=== PATIENT | female | born 1945 | race Caucasian/White ===

== ENCOUNTER 2016-11-19 15:55 | Inpatient (IN) | payer MEDICARE, BC ==
[~2016-11-19 15:55] MED LIST: ADVIL200 M2 PO; ANEXSIA 5/325 M1 TAB PO; ATIVAN1 M2 PO; CENTRUM SILVER1 EAC6 PO; CIPRO XR500 MG PO; CLARITIN-D 241 EAC1 PO; DELTASONE20 MG PO; DULCOLAX STOOL100 MG PO; IBUPROFEN400 MG PO; MAXZIDE 37.5 M1 EAC1 PO; MAXZIDE1 TA2 PO; MEGESTROL ACETA40 M1 PO; MORPHINE SULFAT30 M6 PO; MS CONTIN30 M1 PO; MULTI VITAMIN1 EAC1 PO; MULTIVITAMIN1 TAB PO; MULTIVITAMINS1 EAC6 PO; PERCOCET 5-3251 EACH PO; PROTONIX40 MG PO; ROBAXIN500 M1 PO; SANTYL30 GM TP; SENNA-S TABLET1 EAC1 PO; TAMOXIFEN CITRA20 M1 PO; TYLENOL325 M1 PO; VANCOMYCIN HCL1 G1 IV; VITAMIN D31000 UNI2 PO; VITAMIN D31000 UNI3 PO; ZOSYN IV; [UNRECOGNIZED DRUG - OTHER] IV
[2016-11-19] MEDS ORDERED: VITAMIN D31000 UNI3 PO (16:34)
[2016-11-20 07:52] LABS: BASO % 0.3 % (0-2); EOS % 0.3 % (0-7); HGB-HEMOGLOBIN 8.7 gm/dl (12.0-15.5); IMMATURE GRANULOCYTES ABSOLUTE 0.05 tho/cmm (0-0.03); IMMATURE GRANULOCYTES PERCENT 1.7 % (0-0.3); LYMPH % 15.9 % (20-45); LYMPH ABSOLUTE COUNT 0.5 tho/cmm (0.8-4.5); MCH (MEAN CORPUSCULAR HGB) 28.6 pg (28.0-32.0); MCHC MEAN CORPUSCULAR HGB CONC 33.5 % (32.0-36.0); MCV (MEAN CELL VOLUME) 85.5 fl (82.0-96.0); MEAN PLATELET VOLUME 10.1 cmc (9.4-12.4); MONO % 9.8 % (0-12); MONOCYTE ABSOLUTE COUNT 0.3 tho/cmm (0.0-1.2); NEUTROPHIL ABSOLUTE COUNT 2.1 tho/cmm (1.6-8.0); NEUTROPHIL-AUTOMATED 2.1 tho/cmm (1.6-8.0); PLATELET COUNT 71 tho/cmm (150-450); RED BLOOD COUNT 3.04 mil/cmm (4.00-5.20); RED CELL DISTRIBUTION WIDTH 14.7 % (12.4-16.4)
[2016-11-20 07:59] LABS: ANION GAP 15 mmol/L (0-20); BLOOD UREA NITROGEN 21 mg/dl (6-24); CALCIUM 8.7 mg/dl (8.5-10.5); CARBON DIOXIDE-VENOUS 22 mmol/L (22-32); CHLORIDE 108 mmol/l (96-110); CREATININE 0.72 mg/dl (0.50-1.10); GLUCOSE 85 mg/dL (70-110); POTASSIUM 3.7 mmol/L (3.7-5.1); SODIUM 141 mmol/L (135-145); eGFR VALUE FOR BLACK >90 mL/Min
[2016-11-21 04:39] LABS: HCT-HEMATOCRIT 26.1 % (34.0-49.0); HGB-HEMOGLOBIN 8.8 gm/dl (12.0-15.5); IMMATURE GRANULOCYTES ABSOLUTE 0.05 tho/cmm (0-0.03); IMMATURE GRANULOCYTES PERCENT 1.7 % (0-0.3); LYMPH % 18.5 % (20-45); LYMPH ABSOLUTE COUNT 0.6 tho/cmm (0.8-4.5); MCH (MEAN CORPUSCULAR HGB) 28.6 pg (28.0-32.0); MCHC MEAN CORPUSCULAR HGB CONC 33.7 % (32.0-36.0); MCV (MEAN CELL VOLUME) 84.7 fl (82.0-96.0); MONO % 8.3 % (0-12); MONOCYTE ABSOLUTE COUNT 0.3 tho/cmm (0.0-1.2); NEUTROPHIL ABSOLUTE COUNT 2.1 tho/cmm (1.6-8.0); NEUTROPHIL-AUTOMATED 2.1 tho/cmm (1.6-8.0); NEUTROPHILS % 69.5 % (40-80); PLATELET COUNT 76 tho/cmm (150-450); RED BLOOD COUNT 3.08 mil/cmm (4.00-5.20); RED CELL DISTRIBUTION WIDTH 14.6 % (12.4-16.4)
[2016-11-21 04:55] LABS: ALB/GLOB RATIO 0.7 (0.8-2.0); ALBUMIN 2.5 g/dl (3.5-5.0); ALKALINE PHOSPHATASE 151 U/L (33-138); ALT/SGPT 100 U/L (12-78); ANION GAP 14 mmol/L (0-20); AST/SGOT 123 U/L (10-40); BILIRUBIN,TOTAL 0.7 mg/dl (0-1.5); BLOOD UREA NITROGEN 17 mg/dl (6-24); CALCIUM 8.8 mg/dl (8.5-10.5); CARBON DIOXIDE-VENOUS 23 mmol/L (22-32); CHLORIDE 109 mmol/l (96-110); CREATININE 0.55 mg/dl (0.50-1.10); GLUCOSE 79 mg/dL (70-110); POTASSIUM 3.5 mmol/L (3.7-5.1); SODIUM 142 mmol/L (135-145); eGFR VALUE FOR BLACK >90 mL/Min
[2016-11-21 04:57] LABS: INR 1.3 INR (0.9-1.1); PROTHROMBIN TIME 15.7 SECONDS (9.0-13.6)
[2016-11-22 06:51] LABS: BASO % 0.5 % (0-2); EOS % 0.9 % (0-7); HCT-HEMATOCRIT 27.6 % (34.0-49.0); HGB-HEMOGLOBIN 9.3 gm/dl (12.0-15.5); LYMPH % 13.6 % (20-45); LYMPH ABSOLUTE COUNT 0.6 tho/cmm (0.8-4.5); MCH (MEAN CORPUSCULAR HGB) 28.4 pg (28.0-32.0); MCHC MEAN CORPUSCULAR HGB CONC 33.7 % (32.0-36.0); MCV (MEAN CELL VOLUME) 84.1 fl (82.0-96.0); MONO % 7.6 % (0-12); MONOCYTE ABSOLUTE COUNT 0.3 tho/cmm (0.0-1.2); NEUTROPHIL ABSOLUTE COUNT 3.4 tho/cmm (1.6-8.0); NEUTROPHIL-AUTOMATED 3.4 tho/cmm (1.6-8.0); NEUTROPHILS % 77.4 % (40-80); PLATELET COUNT 88 tho/cmm (150-450); RED BLOOD COUNT 3.28 mil/cmm (4.00-5.20); RED CELL DISTRIBUTION WIDTH 14.3 % (12.4-16.4); WHITE BLOOD COUNT 4.4 tho/cmm (4.0-10.0)
[2016-11-22 07:03] LABS: ALB/GLOB RATIO 0.8 (0.8-2.0); ALBUMIN 2.8 g/dl (3.5-5.0); ALKALINE PHOSPHATASE 161 U/L (33-138); ALT/SGPT 96 U/L (12-78); ANION GAP 14 mmol/L (0-20); AST/SGOT 116 U/L (10-40); BLOOD UREA NITROGEN 14 mg/dl (6-24); CALCIUM 9.1 mg/dl (8.5-10.5); CARBON DIOXIDE-VENOUS 22 mmol/L (22-32); CHLORIDE 107 mmol/l (96-110); CREATININE 0.58 mg/dl (0.50-1.10); POTASSIUM 3.1 mmol/L (3.7-5.1); SODIUM 140 mmol/L (135-145); eGFR VALUE FOR BLACK >90 mL/Min
[2016-11-22 07:07] LABS: GLUCOSE 127 mg/dL (70-110)
[2016-11-22 17:41] LABS: ABG CO2 ARTERIAL 20 mmol/L (21-27); ARTERIAL BLD GAS O2 SATURATION 98 % (95-98); ARTERIAL BLOOD GAS PCO2 29 mmHg (32-45); ARTERIAL PO2 109 mmHg (70-100); BICARBONATE 19 mmol/L (21-28); BLOOD GAS BASE EXCESS -4 mM/L (-/+3); PH 7.43 Units (7.35-7.45)
[2016-11-23 05:24] LABS: BASO % 0.2 % (0-2); HGB-HEMOGLOBIN 8.1 gm/dl (12.0-15.5); IMMATURE GRANULOCYTES ABSOLUTE 0.07 tho/cmm (0-0.03); IMMATURE GRANULOCYTES PERCENT 1.4 % (0-0.3); LYMPH % 12.4 % (20-45); LYMPH ABSOLUTE COUNT 0.6 tho/cmm (0.8-4.5); MCH (MEAN CORPUSCULAR HGB) 28.3 pg (28.0-32.0); MCV (MEAN CELL VOLUME) 83.6 fl (82.0-96.0); MEAN PLATELET VOLUME 11.2 cmc (9.4-12.4); MONOCYTE ABSOLUTE COUNT 0.4 tho/cmm (0.0-1.2); NEUTROPHIL ABSOLUTE COUNT 3.9 tho/cmm (1.6-8.0); NEUTROPHIL-AUTOMATED 3.9 tho/cmm (1.6-8.0); PLATELET COUNT 64 tho/cmm (150-450); RED BLOOD COUNT 2.86 mil/cmm (4.00-5.20); RED CELL DISTRIBUTION WIDTH 15.2 % (12.4-16.4)
[2016-11-23 05:30] LABS: HCT-HEMATOCRIT 23.9 % (34.0-49.0); MCHC MEAN CORPUSCULAR HGB CONC 33.9 % (32.0-36.0)
[2016-11-23 05:59] LABS: ANION GAP 18 mmol/L (0-20); BLOOD UREA NITROGEN 19 mg/dl (6-24); CALCIUM 7.7 mg/dl (8.5-10.5); CARBON DIOXIDE-VENOUS 18 mmol/L (22-32); CHLORIDE 111 mmol/l (96-110); GLUCOSE 124 mg/dL (70-110); SODIUM 143 mmol/L (135-145); eGFR VALUE FOR BLACK >90 mL/Min
[2016-11-23 06:05] LABS: ABG CO2 ARTERIAL 21 mmol/L (21-27); ARTERIAL BLD GAS O2 SATURATION 98 % (95-98); ARTERIAL BLOOD GAS PCO2 30 mmHg (32-45); BICARBONATE 20 mmol/L (21-28); BLOOD GAS BASE EXCESS -4 mM/L (-/+3); PH 7.43 Units (7.35-7.45)
[2016-11-23 06:05] LABS: POTASSIUM 4.3 mmol/L (3.7-5.1)
[2016-11-23 06:11] LABS: ARTERIAL PO2 95 mmHg (70-100)
[2016-11-23 12:42] LABS: INR 1.7 INR (0.9-1.1)
[2016-11-23 12:45] LABS: PARTIAL THROMBOPLASTIN TIME 36 SECONDS (22-38)
[2016-11-23 13:03] LABS: PROTHROMBIN TIME 20.6 SECONDS (9.0-13.6)
[2016-11-23 14:39] LABS: BASO % 0.2 % (0-2); HGB-HEMOGLOBIN 7.4 gm/dl (12.0-15.5); IMMATURE GRANULOCYTES ABSOLUTE 0.06 tho/cmm (0-0.03); IMMATURE GRANULOCYTES PERCENT 1.3 % (0-0.3); LYMPH % 8.9 % (20-45); LYMPH ABSOLUTE COUNT 0.4 tho/cmm (0.8-4.5); MCH (MEAN CORPUSCULAR HGB) 27.9 pg (28.0-32.0); MCV (MEAN CELL VOLUME) 84.5 fl (82.0-96.0); MEAN PLATELET VOLUME 11.1 cmc (9.4-12.4); MONO % 5.2 % (0-12); MONOCYTE ABSOLUTE COUNT 0.2 tho/cmm (0.0-1.2); NEUTROPHIL ABSOLUTE COUNT 3.9 tho/cmm (1.6-8.0); NEUTROPHIL-AUTOMATED 3.9 tho/cmm (1.6-8.0); NEUTROPHILS % 84.4 % (40-80); PLATELET COUNT 61 tho/cmm (150-450); RED BLOOD COUNT 2.65 mil/cmm (4.00-5.20); RED CELL DISTRIBUTION WIDTH 15.7 % (12.4-16.4); WHITE BLOOD COUNT 4.6 tho/cmm (4.0-10.0)
[2016-11-23 14:46] LABS: HCT-HEMATOCRIT 22.4 % (34.0-49.0)
--- NOTE | 2016-11-23 18:30 | NUR ---
0630: RESTLESS, MOVING ALL EXTREMITIES VOLUNTARILY- RT. ARM AND LEG> LEFT. SLOW TO FOLLOW COMMANDS WITH LEFT SIDE. OPENS LEFT EYE AND FOCUSES BREIFLY. RESP. 30'S USING ACCESSORY MUSCLES ON BIPAP. SMITH WITH SM. AMT. YELLOW URINE. 0730: CONT. RESTLESS WITH RESP. IN HIGH 30'S AND HR 120'S. DR. Hadley ALONSO AND DR. ÁLVAREZ HERE, GIVEN CONDITION UPDATE. ORDERS RECIEVED. TAKEN OFF BIPAP PER DR. ALONSO ORDER. PLACED ON 3L/MIN NC. 0745: MORE RESTLESS, AUDIBLE INSPIRATORY WHEEZE, INCREASED HR AND RESP. RATE. 0800: INSPIRATORY STRIDOR NOTED. DR. ALONSO COMES BACK TO ASSESS PT. PT. PLACED BACK ON BIPAP. RESP. RATE 42 WITH HR 140'S PRIOR TO PLACING BACK ON BIPAP. ORDERS RECIEVED FROM DR. ALONSO. 0830: PICC TEAM HERE TO PLACE PICC. [address] PICC, PT. REMAINS TOO RESTLESS. 1030 CONT. RESTLESS MOVING ARMS AND LEGS. RESP. LESS LABORED AND RETRACTION/STRIDOR NO LONGER AUDIBLE. PRECEDEX INITIATED AND FENTANYL BASAL RATE STARTED ORDERED. IV FLUIDS INCREASED TO 150CC/HR. [address] NURSE HERE TO PLACE PICC. ATIVAN 1 MG IVP GIVEN. 1130 [address]LY. PICC IN PLACE. STILL TACHYPNEIC, BUT HR DOWN TO 110'S. FAMILY @ BEDSIDE.
[2016-11-24 03:26] LABS: BASO % 0.2 % (0-2); HCT-HEMATOCRIT 24.4 % (34.0-49.0); HGB-HEMOGLOBIN 8.2 gm/dl (12.0-15.5); IMMATURE GRANULOCYTES ABSOLUTE 0.03 tho/cmm (0-0.03); IMMATURE GRANULOCYTES PERCENT 0.6 % (0-0.3); LYMPH % 9.2 % (20-45); LYMPH ABSOLUTE COUNT 0.4 tho/cmm (0.8-4.5); MCH (MEAN CORPUSCULAR HGB) 28.3 pg (28.0-32.0); MCHC MEAN CORPUSCULAR HGB CONC 33.6 % (32.0-36.0); MCV (MEAN CELL VOLUME) 84.1 fl (82.0-96.0); MEAN PLATELET VOLUME 10.8 cmc (9.4-12.4); MONO % 4.4 % (0-12); MONOCYTE ABSOLUTE COUNT 0.2 tho/cmm (0.0-1.2); NEUTROPHIL ABSOLUTE COUNT 4.1 tho/cmm (1.6-8.0); NEUTROPHIL-AUTOMATED 4.1 tho/cmm (1.6-8.0); NEUTROPHILS % 85.6 % (40-80); RED CELL DISTRIBUTION WIDTH 15.8 % (12.4-16.4); WHITE BLOOD COUNT 4.8 tho/cmm (4.0-10.0)
[2016-11-24 03:34] LABS: PLATELET COUNT 95 tho/cmm (150-450)
[2016-11-24 03:58] LABS: ALB/GLOB RATIO 0.8 (0.8-2.0); ALBUMIN 2.6 g/dl (3.5-5.0); ALKALINE PHOSPHATASE 148 U/L (33-138); ALT/SGPT 107 U/L (12-78); ANION GAP 13 mmol/L (0-20); AST/SGOT 168 U/L (10-40); BILIRUBIN,TOTAL 1.2 mg/dl (0-1.5); BLOOD UREA NITROGEN 27 mg/dl (6-24); CALCIUM 8.3 mg/dl (8.5-10.5); CARBON DIOXIDE-VENOUS 22 mmol/L (22-32); CHLORIDE 114 mmol/l (96-110); CREATININE 0.66 mg/dl (0.50-1.10); POTASSIUM 4.4 mmol/L (3.7-5.1); SODIUM 145 mmol/L (135-145); eGFR VALUE FOR BLACK >90 mL/Min
[2016-11-24 04:14] LABS: GLUCOSE 189 mg/dL (70-110)
[2016-11-25 03:51] LABS: HCT-HEMATOCRIT 26.3 % (34.0-49.0); HGB-HEMOGLOBIN 8.7 gm/dl (12.0-15.5); MCH (MEAN CORPUSCULAR HGB) 28.3 pg (28.0-32.0); MCHC MEAN CORPUSCULAR HGB CONC 33.1 % (32.0-36.0); MCV (MEAN CELL VOLUME) 85.7 fl (82.0-96.0); MEAN PLATELET VOLUME 10.6 cmc (9.4-12.4); NEUTROPHIL-AUTOMATED 5.2 tho/cmm (1.6-8.0); PLATELET COUNT 66 tho/cmm (150-450); RED BLOOD COUNT 3.07 mil/cmm (4.00-5.20); RED CELL DISTRIBUTION WIDTH 16.8 % (12.4-16.4); WHITE BLOOD COUNT 6.1 tho/cmm (4.0-10.0)
[2016-11-25 03:53] LABS: INR 1.7 INR (0.9-1.1); PROTHROMBIN TIME 20.5 SECONDS (9.0-13.6)
[2016-11-25 03:59] LABS: BASO % 0.2 % (0-2); IMMATURE GRANULOCYTES ABSOLUTE 0.09 tho/cmm (0-0.03); IMMATURE GRANULOCYTES PERCENT 1.5 % (0-0.3); LYMPH % 8.7 % (20-45); LYMPH ABSOLUTE COUNT 0.5 tho/cmm (0.8-4.5); MONO % 4.6 % (0-12); MONOCYTE ABSOLUTE COUNT 0.3 tho/cmm (0.0-1.2); NEUTROPHIL ABSOLUTE COUNT 5.2 tho/cmm (1.6-8.0)
[2016-11-25 04:17] LABS: ALB/GLOB RATIO 0.8 (0.8-2.0); ALBUMIN 2.5 g/dl (3.5-5.0); ALKALINE PHOSPHATASE 158 U/L (33-138); ALT/SGPT 142 U/L (12-78); ANION GAP 16 mmol/L (0-20); AST/SGOT 129 U/L (10-40); BLOOD UREA NITROGEN 34 mg/dl (6-24); CALCIUM 8.5 mg/dl (8.5-10.5); CARBON DIOXIDE-VENOUS 22 mmol/L (22-32); CHLORIDE 114 mmol/l (96-110); CREATININE 0.71 mg/dl (0.50-1.10); GLUCOSE 198 mg/dL (70-110); POTASSIUM 4.6 mmol/L (3.7-5.1); SODIUM 147 mmol/L (135-145); eGFR VALUE FOR BLACK >90 mL/Min
[2016-11-25 09:59] LABS: ABG CO2 ARTERIAL 21 mmol/L (21-27); ARTERIAL BLD GAS O2 SATURATION 94 % (95-98); ARTERIAL BLOOD GAS PCO2 29 mmHg (32-45); ARTERIAL PO2 68 mmHg (70-100); BICARBONATE 20 mmol/L (21-28); BLOOD GAS BASE EXCESS -2 mM/L (-/+3); PH 7.46 Units (7.35-7.45)
[2016-11-26 03:37] LABS: ANION GAP 12 mmol/L (0-20); BASO % 0.5 % (0-2); BLOOD UREA NITROGEN 31 mg/dl (6-24); CALCIUM 8.3 mg/dl (8.5-10.5); CARBON DIOXIDE-VENOUS 26 mmol/L (22-32); CHLORIDE 112 mmol/l (96-110); CREATININE 0.74 mg/dl (0.50-1.10); EOS % 0.1 % (0-7); GLUCOSE 257 mg/dL (70-110); HCT-HEMATOCRIT 26.4 % (34.0-49.0); HGB-HEMOGLOBIN 8.8 gm/dl (12.0-15.5); IMMATURE GRANULOCYTES ABSOLUTE 0.47 tho/cmm (0-0.03); IMMATURE GRANULOCYTES PERCENT 5.4 % (0-0.3); LYMPH % 6.9 % (20-45); LYMPH ABSOLUTE COUNT 0.6 tho/cmm (0.8-4.5); MCH (MEAN CORPUSCULAR HGB) 28.5 pg (28.0-32.0); MCHC MEAN CORPUSCULAR HGB CONC 33.3 % (32.0-36.0); MCV (MEAN CELL VOLUME) 85.4 fl (82.0-96.0); MONO % 5.1 % (0-12); MONOCYTE ABSOLUTE COUNT 0.5 tho/cmm (0.0-1.2); NEUTROPHIL ABSOLUTE COUNT 7.2 tho/cmm (1.6-8.0); NEUTROPHIL-AUTOMATED 7.2 tho/cmm (1.6-8.0); PLATELET COUNT 54 tho/cmm (150-450); POTASSIUM 3.9 mmol/L (3.7-5.1); RED BLOOD COUNT 3.09 mil/cmm (4.00-5.20); SODIUM 146 mmol/L (135-145); WHITE BLOOD COUNT 8.8 tho/cmm (4.0-10.0); eGFR VALUE FOR BLACK >90 mL/Min
== END 2016-11-27 13:30 | disposition expired | DRG 25 ==
LOC: 5WF 15:55 → ORE 11-22 15:37 → CCU 11-22 17:55
PROVIDERS: Internal Medicine Medical Oncology; Internal Medicine Pulmonary Disease; Neurological Surgery; ADMIT Internal Medicine Medical Oncology
PROC: 00C40ZZ Extirpation of Matter from Intracranial Subdural Space, Open Approach (ICD-10-PCS; principal; 2016-11-22)
PROC: 5A09457 Assistance with Respiratory Ventilation, 24-96 Consecutive Hours, Continuous Positive Airway Pressure (ICD-10-PCS; 2016-11-22)
PROC: 30233N1 Transfusion of Nonautologous Red Blood Cells into Peripheral Vein, Percutaneous Approach (ICD-10-PCS; 2016-11-23)
PROC: 02HV33Z Insertion of Infusion Device into Superior Vena Cava, Percutaneous Approach (ICD-10-PCS; 2016-11-23)
PROC: B548ZZA Ultrasonography of Superior Vena Cava, Guidance (ICD-10-PCS; 2016-11-23)
DX: I62.00 Nontraumatic subdural hemorrhage, unspecified (principal); G93.5 Compression of brain; J96.01 Acute respiratory failure with hypoxia; E44.0 Moderate protein-calorie malnutrition; D61.818 Other pancytopenia; C49.5 Malignant neoplasm of connective and soft tissue of pelvis; C79.52 Secondary malignant neoplasm of bone marrow; G81.94 Hemiplegia, unspecified affecting left nondominant side; D69.6 Thrombocytopenia, unspecified; E86.0 Dehydration; K59.00 Constipation, unspecified; E87.6 Hypokalemia; F17.200 Nicotine dependence, unspecified, uncomplicated; F41.9 Anxiety disorder, unspecified; G89.29 Other chronic pain; I10 Essential (primary) hypertension; I62.03 Nontraumatic chronic subdural hemorrhage; Z51.5 Encounter for palliative care; Z66 Do not resuscitate; Z92.3 Personal history of irradiation; E55.9 Vitamin D deficiency, unspecified
CPT/HCPCS: C1751; C9113; J0690; J1100; J1650; J1815; J1940; J1953; J2060; J2270; J2405; J3010; J3430; J3480; J7030; P9017; P9037; P9040; Q9967